=== PATIENT | female | born 1995 | race Caucasian/White ===

== ENCOUNTER 2025-06-17 10:54 | Outpatient (CLI) | payer OTHER | END 2025-06-17 11:15 | disposition home or self-care (01) | LOC: NST 10:54 | PROVIDERS: ATTEND Obstetrics & Gynecology | DX: Z34.83 Encounter for supervision of other normal pregnancy, third trimester (principal) ==

== ENCOUNTER 2025-06-25 14:19 | Outpatient (CLI) | payer OTHER ==
[2025-06-25 14:00] VITALS: BP 119/67
[2025-06-25] MEDS ORDERED: PRENATABS RX T1 EACH PO (14:23)
[2025-06-25 15:23] VITALS: BP 115/65
[2025-06-25 16:27] VITALS: BP 115/65
== END 2025-06-25 16:36 | disposition home or self-care (01) ==
LOC: OBS/DEL 14:19
PROVIDERS: ATTEND Obstetrics & Gynecology
DX: O26.893 Other specified pregnancy related conditions, third trimester (principal); Z3A.39 39 weeks gestation of pregnancy

== ENCOUNTER 2025-06-29 21:47 | Inpatient (IN) | payer OTHER ==
[~2025-06-29] VITALS: Ht 162.6 cm; Wt 83.5 kg
[~2025-06-29 21:47] MED LIST: PRENATABS RX T1 EACH PO
[2025-06-29 22:34] VITALS: BP 117/61
[2025-06-29 23:25] VITALS: BP 123/64
[2025-06-29 23:29] LABS: BASO % 0.1 % (0.1-1.2); EOS # 0.04 (0.04-0.54); EOS % 0.5 % (0.7-7.0); LYMPH # 1.65 (1.18-3.74); LYMPH % 19.3 % (19.3-53.1); MEAN PLATELET VOLUME 11.40 fl (9.4-12.4); MONO # 0.64 (0.24-0.82); MONO % 7.5 % (4.7-12.5); NEUT # 6.16 (1.56-6.13); NEUT % 72.0 % (34.0-71.1); RED CELL DISTRIBUTION WIDTH 13.0 % (11.6-14.4)
[2025-06-30 00:04] LABS: INR 1.03
[2025-06-30 00:14] LABS: ALT/SGPT 28.0 U/L (12-78); AST/SGOT 19.0 U/L (15-37); BILIRUBIN TOTAL 0.24 mg/dL (0.3-1.2); BUN CREA RATIO 21.0 (7.0-25.0); CREATININE SERUM 0.53 mg/dL (0.55-1.02); GFR 135.45; GLOBULINA 3.7 G/DL (2.4-3.5); GLUCOSE FASTING 93.0 mg/dL (65-100); OSMOLALITY SERUM 278.0 MOSM/KG (275-295)
[2025-06-30 04:21] VITALS: BP 126/67
[2025-06-30] MEDS ORDERED: OXYTOCIN 20 UNITS/500ML RL PIGGYBAG IV ONE (07:14)
[2025-06-30 07:26] VITALS: BP 114/66
[2025-06-30] MEDS ORDERED: OXYTOCIN 500 ML IV ONE (07:30)
[2025-06-30 11:04] VITALS: BP 130/64
[2025-06-30] MEDS ORDERED: ERYTHROMYCIN BASE OPHT 1GM EACH TUBE OP ONE (13:20)
[2025-06-30] MEDS ORDERED: CHLORHEXIDINE GLUCONATE 120 ML BOTTLE TOP ONE (13:20)
[2025-06-30] MEDS ORDERED: LIDOCAINE HCL 1% 10ML VIAL ONE (13:20)
[2025-06-30] MEDS ORDERED: OXYTOCIN 20 UNITS/1000ML RL PIGGYBAG IV ONE (13:20)
[2025-06-30] MEDS ORDERED: CEFAZOLIN SODIUM 1,000 MG VIAL ONE (14:44)
[2025-06-30] MEDS ORDERED: CEFAZOLIN SODIUM 1,000 MG VIAL IV ONE (15:15)
[2025-06-30] MEDS ORDERED: OXYTOCIN 1,000 ML IV ONE (16:15)
[2025-06-30] MEDS ORDERED: KETOROLAC TROMETHAMINE 30 MG VIAL IV SCH (18:00)
[2025-06-30 19:08] VITALS: BP 115/67
[2025-07-01] VITALS: BP 110/68
[2025-07-01] MEDS ORDERED: ACETAMINOPHEN 500 MG GEL..CAP PO SCH (06:00)
[2025-07-01 06:45] LABS: BASO % 0.2 % (0.1-1.2); EOS # 0.03 (0.04-0.54); EOS % 0.2 % (0.7-7.0); LYMPH # 1.59 (1.18-3.74); LYMPH % 9.8 % (19.3-53.1); MEAN PLATELET VOLUME 11.40 fl (9.4-12.4); MONO # 0.90 (0.24-0.82); MONO % 5.6 % (4.7-12.5); NEUT # 13.53 (1.56-6.13); NEUT % 83.8 % (34.0-71.1); RED CELL DISTRIBUTION WIDTH 13.2 % (11.6-14.4)
[2025-07-01] MEDS ORDERED: GABAPENTIN 300 MG CAPSULE PO SCH (09:00)
[2025-07-01] MEDS ORDERED: PNV,CALCIUM 72/IRON/FOLIC ACID 1 TAB TABLET PO SCH (09:00)
[2025-07-01] MEDS ORDERED: DOCUSATE SODIUM 100MG CAP PO SCH (09:00)
[2025-07-01] MEDS ORDERED: SIMETHICONE 125 MG CAPSULE PO SCH (09:00)
[2025-07-01 09:14] VITALS: BP 97/68
[2025-07-01 19:57] VITALS: BP 108/66
[2025-07-02] VITALS: BP 114/63
[2025-07-02 08:24] VITALS: BP 97/60; O2SAT 98
== END 2025-07-02 12:26 | disposition home or self-care (01) | DRG 788 ==
LOC: SURH → OB/GYN 21:47 → LDR 21:47 → OB/GYN 22:17 → SURH 07-01 10:25 → OB/GYN 07-02 12:26
PROVIDERS: Obstetrics & Gynecology Gynecology; ADMIT Obstetrics & Gynecology; ATTEND Obstetrics & Gynecology
PROC: 4A1HXCZ Monitoring of Products of Conception, Cardiac Rate, External Approach (ICD-10-PCS; 2025-06-30)
PROC: 10D00Z1 Extraction of Products of Conception, Low, Open Approach (ICD-10-PCS; principal; 2025-06-30 18:30)
DX: O82 Encounter for cesarean delivery without indication (principal); O61.0 Failed medical induction of labor; O64.0XX0 Obstructed labor due to incomplete rotation of fetal head, not applicable or unspecified; Z3A.38 38 weeks gestation of pregnancy; Z37.0 Single live birth